=== PATIENT | male | born 2000 | race Two or more races ===

== ENCOUNTER 2023-10-27 19:48 | Emergency (ER) | payer SELFPAY ==
[~2023-10-27] VITALS: Ht 167.6 cm; Wt 68.2 kg
[2023-10-27 21:47] LABS: Trichomonas vaginalis (AMP) NOT DETECTED (NEGATIVE)
[2023-10-27] MEDS: methocarbamoL 500 MG TAB PO ONE (22:01)
[2023-10-27] MEDS: IBUPROFEN 600MG TAB PO ONE (22:02)
[2023-10-27 22:11] LABS: GC DNA AMPLIFICATION NEGATIVE (NEGATIVE)
[2023-10-28] MEDS ORDERED: IBUP-1022 PO (00:55)
[2023-10-28] MEDS ORDERED: METH-1164 PO (00:55)
[2023-10-28] MEDS ORDERED: PRED20TA PO (00:55)
[2023-10-28 01:25] VITALS: BP 125/76; TEMP 96.2; O2SAT 100
== END 2023-10-28 01:26 | disposition home or self-care (01) ==
LOC: M ED 19:48
DX: M54.41 Lumbago with sciatica, right side (principal); F17.200 Nicotine dependence, unspecified, uncomplicated; Z79.1 Long term (current) use of non-steroidal anti-inflammatories (NSAID); Z79.52 Long term (current) use of systemic steroids; Z79.899 Other long term (current) drug therapy